=== PATIENT | male | born 1995 | race Caucasian/White ===

== ENCOUNTER 2018-07-30 19:05 | Emergency (ER) | payer SELFPAY ==
[~2018-07-30] VITALS: Ht 182.9 cm; Wt 100.2 kg
[2018-07-30 19:10] VITALS: BP 166/104; Ht 182.9 cm; Wt 100.2 kg
== END 2018-07-30 22:25 | disposition left against medical advice (07) ==
LOC: ED 19:05
DX: Z53.21 Procedure and treatment not carried out due to patient leaving prior to being seen by health care provider (principal)

== ENCOUNTER 2018-07-31 01:04 | Emergency (ER) | payer SELFPAY ==
[~2018-07-31] VITALS: Ht 182.9 cm; Wt 103.9 kg
[2018-07-31 01:07] VITALS: Ht 182.9 cm; Wt 103.9 kg
[2018-07-31 02:05] LABS: CALCIUM 9.3 mg/dL (8.5-10.1); CHLORIDE SERUM 104 mmol/L (98-107); GFR1 > 60 mL/min; GLUCOSE SERUM 92 mg/dL (74-106); POTASSIUM SERUM 3.8 mmol/L (3.5-5.1); SODIUM SERUM 141 mmol/L (136-145)
[2018-07-31 02:11] LABS: ALBUMIN 3.8 g/dL (3.4-5.0); ALKALINE PHOSPHATASE 97 U/L (46-116); ALT/SGPT 29 U/L (16-63); AST/SGOT 38 U/L (15-37); BILIRUBIN TOTAL 0.33 mg/dL (0.20-1.00); TOTAL PROTEIN, SERUM 7.7 g/dL (6.4-8.2)
[2018-07-31 03:44] VITALS: BP 103/58
== END 2018-07-31 03:44 | disposition home or self-care (01) ==
LOC: ED 01:04
PROVIDERS: Emergency Medicine
DX: T43.615A Adverse effect of caffeine, initial encounter (principal); Y92.89 Other specified places as the place of occurrence of the external cause
CPT/HCPCS: Q0177

== ENCOUNTER 2019-02-21 05:35 | Emergency (ER) | payer SELFPAY ==
[~2019-02-21] VITALS: Ht 182.9 cm; Wt 109.8 kg
[2019-02-21 05:39] VITALS: Ht 182.9 cm; Wt 109.8 kg
[2019-02-21 06:35] LABS: BASOPHIL % 0.9 % (0-2); PLATELET COUNT 294 x10^3mcL (130-400); RED CELL DISTRIBUTION WIDTH 13.5 % (11.5-14.5)
[2019-02-21 06:45] LABS: CALCIUM 9.1 mg/dL (8.5-10.1); CARBON DIOXIDE 29.3 mmol/L (21-32); CHLORIDE SERUM 104 mmol/L (98-107); GFR1 > 60 mL/min; GLUCOSE SERUM 98 mg/dL (74-106); SODIUM SERUM 141 mmol/L (136-145)
[2019-02-21 06:50] LABS: ALBUMIN 3.7 g/dL (3.4-5.0); ALKALINE PHOSPHATASE 134 U/L (46-116); ALT/SGPT 26 U/L (16-63); AST/SGOT 19 U/L (15-37); BILIRUBIN TOTAL 0.2 mg/dL (0.20-1.00)
[2019-02-21 06:51] LABS: TOTAL PROTEIN, SERUM 8.3 g/dL (6.4-8.2)
[2019-02-21 07:30] LABS: AMPHETAMINE QUAL UR NONE DETECTED (See below)
[2019-02-21 08:08] VITALS: BP 116/45
== END 2019-02-21 08:08 | disposition home or self-care (01) ==
LOC: ED 05:35
PROVIDERS: Emergency Medicine
DX: R00.2 Palpitations (principal); G47.00 Insomnia, unspecified; Z98.890 Other specified postprocedural states
CPT/HCPCS: 36415; Q0092